=== PATIENT | male | born 1960 | race Caucasian/White ===

== ENCOUNTER → 2020-05-11 | Outpatient (CLI) | payer OTHER ==
[2020-05-11 19:56] LABS: BASOPHILS ABSOLUTE AUTO 0.03 K/mm3 (0.00-0.23); BASOPHILS PERCENT AUTO 0 % (0-2); EOSINOPHILS ABSOLUTE AUTO 0.08 K/mm3 (0.00-0.68); EOSINOPHILS PERCENT AUTO 1 % (0-6); Hematocrit 52.9 % (37.0-53.0); Hemoglobin 16.7 g/dL (13.5-17.5); IMMATURE GRAN ABSOLUTE AUTO 0.01 K/mm3 (0.00-0.10); IMMATURE GRAN PERCENT AUTO 0 % (0-1); LYMPHOCYTES ABSOLUTE AUTO 4.57 K/mm3 (0.84-5.20); LYMPHOCYTES PERCENT AUTO 54 % (21-46); MONOCYTES ABSOLUTE AUTO 0.61 K/mm3 (0.16-1.47); MONOCYTES PERCENT AUTO 7 % (4-13); Mean Corpuscular HGB 31.1 pg (26.0-34.0); Mean Corpuscular HGB Conc 31.6 g/dL (31.5-36.5); Mean Corpuscular Volume 99 fL (80-100); Mean Platelet Volume 11.8 fL (9.1-12.4); NEUTROPHILS ABSOLUTE AUTO 3.21 K/mm3 (1.96-9.15); NEUTROPHILS PERCENT AUTO 38 % (41-73); Platelet Count 172 K/mm3 (150-400); RDW Coefficient Variation 12.9 % (11.7-14.2); RDW Standard Deviation 46.9 fL (35.1-46.3); Red Blood Cell Count 5.37 M/mm3 (4.30-5.90); White Blood Cell Count 8.51 K/mm3 (4.00-11.30)
[2020-05-11 20:35] LABS: Alanine Aminotransfer (ALT/SGP 22 U/L (12-78); Albumin, Blood 3.3 g/dL (3.4-5.0); Albumin/Globulin Ratio 0.8 (0.8-1.8); Alk Phos 100 U/L (50-136); Anion Gap 6 mmol/L (6-16); Aspartate Aminotrans (AST/SGOT 25 U/L (12-37); Bilirubin, Total 0.5 mg/dL (0.1-1.0); Blood Urea Nitrogen 28 mg/dL (8-24); Bun/Creatinine Ratio 32.3 (12.0-20.0); CO2, Blood 28 mmol/L (21-32); Calcium, Blood 8.7 mg/dL (8.5-10.1); Chloride, Blood 109 mmol/L (98-108); Creatinine, Blood 0.87 mg/dL (0.60-1.20); Glomerular Filtration Rate >60 (60-); Glucose, Blood 82 mg/dL (70-99); Potassium, Blood 4.5 mmol/L (3.5-5.5); Sodium, Blood 143 mmol/L (136-145); Total Protein, Blood 7.3 g/dL (6.4-8.2)
[2020-05-11 20:43] LABS: Very Low Density Lipoprot Chol 16 mg/dL (6-32)
[2020-05-11 20:47] LABS: CHOL/HDL RATIO 3.9; Cholesterol 190 mg/dL (50-200); HDL Cholesterol 49 mg/dL (>39); LDL/HDL RATIO 2.5; Low Density Lipoprotein Chol 125 mg/dL (0-110); Prostate Specific Antigen 0.594 ng/mL (0.000-4.000); Triglycerides 81 mg/dL (30-160)
== END | disposition home or self-care (01) ==
LOC: LAB SHORT 18:40 → LAB 18:40
PROVIDERS: Nurse Practitioner Family
DX: Z12.5 Encounter for screening for malignant neoplasm of prostate (principal); E02 Subclinical iodine-deficiency hypothyroidism; E66.3 Overweight; Z79.899 Other long term (current) drug therapy
CPT/HCPCS: 80053; 80061; 83036; 84443; 85025; G0103

== ENCOUNTER → 2023-09-03 | Outpatient (CLI) | payer OTHER ==
[~2023-09-03] MED LIST: ATORVASTATIN CA20 MG PO; DEPAKOTE ER500 M2 PO; DIAZEPAM10 MG PO; DOCU100 PO; LEVOTHYROXINE112 MC6 PO; Vimpat200 MG PO
== END ==
LOC: LAB SHORT 07:53 → LAB EV 07:53
DX: L57.0 Actinic keratosis (principal); L72.8 Other follicular cysts of the skin and subcutaneous tissue; L57.8 Other skin changes due to chronic exposure to nonionizing radiation
CPT/HCPCS: 88305

== ENCOUNTER 2024-08-08 11:12 | Emergency (ER) | payer OTHER ==
[~2024-08-08] VITALS: Ht 170.2 cm; Wt 68.0 kg
[2024-08-08] MEDS ORDERED: Ketorolac Tromethamine 30mg Vial IV ONE (11:40)
[2024-08-08] MEDS ORDERED: Acetaminophen 500 MG Tab PO ONE (12:10)
[2024-08-08 13:30] VITALS: BP 110/57
== END 2024-08-08 13:58 | disposition home or self-care (01) ==
LOC: ER 11:12
DX: S00.81XA Abrasion of other part of head, initial encounter (principal); E03.9 Hypothyroidism, unspecified; E78.5 Hyperlipidemia, unspecified; W18.30XA Fall on same level, unspecified, initial encounter; Z79.899 Other long term (current) drug therapy
CPT/HCPCS: 70450; 99284-25; A9270

== ENCOUNTER → 2024-10-13 | Outpatient (CLI) | payer OTHER ==
[2024-10-13 19:20] LABS: BASOPHILS ABSOLUTE AUTO 0.02 K/mm3 (0.00-0.23); BASOPHILS PERCENT AUTO 0 % (0-2); EOSINOPHILS ABSOLUTE AUTO 0.15 K/mm3 (0.00-0.68); EOSINOPHILS PERCENT AUTO 2 % (0-6); Hematocrit 45.1 % (37.0-53.0); IMMATURE GRAN ABSOLUTE AUTO 0.02 K/mm3 (0.00-0.10); IMMATURE GRAN PERCENT AUTO 0 % (0-1); LYMPHOCYTES ABSOLUTE AUTO 3.55 K/mm3 (0.84-5.20); LYMPHOCYTES PERCENT AUTO 52 % (21-46); MONOCYTES ABSOLUTE AUTO 0.48 K/mm3 (0.16-1.47); MONOCYTES PERCENT AUTO 7 % (4-13); Mean Corpuscular HGB 31.9 pg (26.0-34.0); Mean Corpuscular HGB Conc 33.3 g/dL (31.5-36.5); Mean Corpuscular Volume 96 fL (80-100); Mean Platelet Volume 12.1 fL (9.1-12.4); NEUTROPHILS ABSOLUTE AUTO 2.65 K/mm3 (1.96-9.15); NEUTROPHILS PERCENT AUTO 39 % (41-73); Platelet Count 139 K/mm3 (150-400); RDW Coefficient Variation 14.2 % (11.7-14.2); RDW Standard Deviation 49.8 fL (35.1-46.3); White Blood Cell Count 6.87 K/mm3 (4.00-11.30)
[2024-10-13 19:46] LABS: Alanine Aminotransfer (ALT/SGP 22 U/L (12-78); Albumin, Blood 2.9 g/dL (3.4-5.0); Albumin/Globulin Ratio 0.8 (0.8-1.8); Alk Phos 46 U/L (50-136); Anion Gap 7 mmol/L (3-11); Aspartate Aminotrans (AST/SGOT 26 U/L (12-37); Bilirubin, Total 0.3 mg/dL (0.1-1.0); Blood Urea Nitrogen 38 mg/dL (8-24); Bun/Creatinine Ratio 52.7 (12.0-20.0); CO2, Blood 32 mmol/L (21-32); Calcium, Blood 8.5 mg/dL (8.5-10.1); Chloride, Blood 107 mmol/L (98-108); Cholesterol 180 mg/dL (50-200); Creatinine, Blood 0.72 mg/dL (0.60-1.20); Globulin, Blood 3.8 g/dL (2.2-4.0); Glomerular Filtration Rate 103 (60-); Glucose, Blood 151 mg/dL (70-99); HDL Cholesterol 61 mg/dL (>39); LDL/HDL RATIO 1.4; Low Density Lipoprotein Chol 88 mg/dL (0-110); Potassium, Blood 4.5 mmol/L (3.5-5.5); Sodium, Blood 141 mmol/L (136-145); Total Protein, Blood 6.7 g/dL (6.4-8.2); Triglycerides 155 mg/dL (30-160); Very Low Density Lipoprot Chol 31 mg/dL (6-32)
[2024-10-13 19:49] LABS: Valproic Acid 97.5 ug/mL (50.0-100.0)
[2024-10-16 12:24] LABS: HIV 1,2 COMBO ANTIGEN/ANTIBODY Negative (Negative)
== END ==
LOC: LAB SHORT 18:41 → LAB 18:41
PROVIDERS: Family Medicine
DX: Z12.5 Encounter for screening for malignant neoplasm of prostate (principal); Z11.4 Encounter for screening for human immunodeficiency virus [HIV]; E03.4 Atrophy of thyroid (acquired); E78.2 Mixed hyperlipidemia; G40.219 Localization-related (focal) (partial) symptomatic epilepsy and epileptic syndromes with complex partial seizures, intractable, without status epilepticus
CPT/HCPCS: 80053; 80061; 80164; 84443; 85025; 87389; G0103

== ENCOUNTER 2025-01-18 08:50 | Inpatient (IN) | payer OTHER ==
[2025-01-18] VITALS (27 sets, daily range): BP systolic 78–134; BP diastolic 42–87
[~2025-01-18] VITALS: Ht 175.3 cm; Wt 81.9 kg
[2025-01-18] MEDS ORDERED: LEVOTHYROXINE112 M18 PO (09:08)
[2025-01-18] MEDS ORDERED: DIAZ10 PO (09:09)
[2025-01-18] MEDS ORDERED: DEPAKOTE ER500 M2 PO (09:09)
[2025-01-18] MEDS ORDERED: LACOSAMIDE200 M1 PO (09:09)
[2025-01-18 09:52] LABS: Hematocrit 45.6 % (37.0-53.0); Hemoglobin 15.8 g/dL (13.5-17.5); Mean Corpuscular HGB 32.7 pg (26.0-34.0); Mean Corpuscular HGB Conc 34.6 g/dL (31.5-36.5); Mean Corpuscular Volume 94 fL (80-100); Mean Platelet Volume 12.2 fL (9.1-12.4); Platelet Count 95 K/mm3 (150-400); RDW Coefficient Variation 13.4 % (11.7-14.2); RDW Standard Deviation 47.2 fL (35.1-46.3); Red Blood Cell Count 4.83 M/mm3 (4.30-5.90); White Blood Cell Count 3.67 K/mm3 (4.00-11.30)
[2025-01-18 10:12] LABS: Albumin, Blood 2.9 g/dL (3.4-5.0); Albumin/Globulin Ratio 0.7 (0.8-1.8); Bilirubin, Total 0.6 mg/dL (0.1-1.0); Bun/Creatinine Ratio 34.2 (12.0-20.0); Calcium, Blood 9.2 mg/dL (8.5-10.1); Creatinine, Blood 1.14 mg/dL (0.60-1.20); Globulin, Blood 3.9 g/dL (2.2-4.0); Potassium, Blood 3.5 mmol/L (3.5-5.5); Total Protein, Blood 6.8 g/dL (6.4-8.2)
[2025-01-18 10:26] LABS: BAND PERCENT MAN 40 % (0-8); BASOPHILS PERCENT MAN 0 % (0-2); EOSINOPHILS PERCENT MAN 0 % (0-6); LYMPHOCYTES ABSOLUTE MAN 0.91 K/mm3 (0.84-5.20); LYMPHOCYTES PERCENT MAN 25 % (21-46); METAMYELOCYTE ABSOLUTE MAN 0.14 K/mm3 (0.00-0.00); METAMYELOCYTE PERCENT MAN 4 % (0-0); MONOCYTES ABSOLUTE MAN 0.18 K/mm3 (0.16-1.47); MONOCYTES PERCENT MAN 5 % (4-13); NEUTROPHILS ABSOLUTE MAN 2.42 K/mm3 (1.96-9.15); SEG NEUTROPHILS PERCENT MAN 26 % (41-73); TOTAL CELLS COUNTED 100
[2025-01-18 10:28] LABS: CORONAVIRUS COVID-19 AG Negative (NEGATIVE); INFLUENZA A AG Negative (NEGATIVE); INFLUENZA B AG Negative (NEGATIVE)
[2025-01-18] MEDS ORDERED: Lactated Ringer's 1,000 ML IV ONE (11:15)
[2025-01-18] MEDS ORDERED: Ketorolac Tromethamine 15mg Vial IV ONE (12:20)
[2025-01-18 12:26] LABS: Source, Urine Clean Catch
[2025-01-18 12:35] LABS: Appearance, Urine Clear (Clear); Bilirubin, Urine Neg (Neg); Blood, Urine 5+ (Neg); Color, Urine Yellow (P-Yellow); Glucose Qualitative, Urine Neg (Neg); Ketones, Urine Neg (Neg); Leukocyte Esterase, Urine 1+ (Neg); Nitrite, Urine Pos (Neg); Protein, Urine 3+ (Neg); Urobilinogen, Urine NORM (Normal)
[2025-01-18 12:46] LABS: Bacteria Many /hpf; Squamous Epithelial Cells Few /hpf (Few)
[2025-01-18] MEDS ORDERED: NS 1,000 ML IV SCH ×2 (13:20→14:20)
[2025-01-18] MEDS ORDERED: CefTRIAXone Sodium 1,000 MG in NS 100 ML IV ONE (13:20)
[2025-01-18] MEDS ORDERED: Piperacillin/Tazobactam Sod 3.375 GM in NS 100 ML IV ONE (13:25)
[2025-01-18] MEDS ORDERED: FLU VACC TS2024-25(6MOS UP)/PF 45 MCG/0.5 ML SYRINGE IM SCH (14:35)
[2025-01-18] MEDS ORDERED: Lactated Ringer's 1,000 ML IV SCH (14:35)
--- NOTE | 2025-01-18 17:37 | NUR ---
[facility] of care: Received patient from ED. He is awake & oriented to place & self, otherwise confused. Follows commands & very pleasant. Speech garbled & delayed -- very challenging to understand. IN NSR in the 70s with MAPs above 65 on 12 mcgs/min of norepi. Oxygen saturations not maintaining upon arrival to the unit so placed on 15L NRB with O2 sat currently 92-93%. He has a very congested but unproductive cough with coarse lung sounds. Stable RR. Male purewick in place draining clear, yellow urine. 400cc out in the ED per RN. He has a pre-existing abrasion to the posterior R shoulder & some redness to his L buttock but no open wounds. PIV x2 & R IJ CVC. LR infusing at 150cc/hr. Informed Dr. Paul of his oxygen requirements & clarified IVF order. No family present but patient updated on plan of care. Keep NPO per Dr. Paul until stable for bs swallow eval & then we may advance to clears if he tolerates. Will continue to monitor.
[2025-01-18] MEDS ORDERED: Diazepam 5 MG / ML 2ML SYR IV PRN (17:50)
[2025-01-18] MEDS ORDERED: NS 250 ML IV PRN (17:50)
[2025-01-18] MEDS ORDERED: Acetaminophen 650 MG Supp PR PRN (17:55)
[2025-01-18] MEDS ORDERED: Azithromycin 500 MG in NS 250 ML IV SCH (18:05)
[2025-01-18] MEDS ORDERED: Potassium Chloride 40 MEQ in NS 250 ML IV ONE (18:05)
[2025-01-18] MEDS ORDERED: Piperacillin/Tazobactam Sod 4.5 GM in NS 100 ML IV SCH (19:00)
[2025-01-18] MEDS ORDERED: Lacosamide 200 MG/20 ML 20ML Vial IV SCH (21:00)
[2025-01-18] MEDS ORDERED: Lactobacil 2-S.Thermo-Bifido 1 1 Cap PO SCH (21:00)
[2025-01-18] MEDS ORDERED: Docusate Sodium 100 MG Cap PO SCH (21:00)
[2025-01-19] VITALS (87 sets, daily range): BP systolic 80–132; BP diastolic 42–106
[2025-01-19 03:58] LABS: Hematocrit 41.4 % (37.0-53.0); Hemoglobin 14.1 g/dL (13.5-17.5); Mean Corpuscular HGB 32.5 pg (26.0-34.0); Mean Corpuscular HGB Conc 34.1 g/dL (31.5-36.5); Mean Corpuscular Volume 95 fL (80-100); Mean Platelet Volume 12.4 fL (9.1-12.4); Platelet Count 74 K/mm3 (150-400); RDW Coefficient Variation 13.8 % (11.7-14.2); Red Blood Cell Count 4.34 M/mm3 (4.30-5.90); White Blood Cell Count 7.76 K/mm3 (4.00-11.30)
[2025-01-19 04:18] LABS: Albumin, Blood 2.1 g/dL (3.4-5.0); Albumin/Globulin Ratio 0.6 (0.8-1.8); Bilirubin, Total 0.5 mg/dL (0.1-1.0); Bun/Creatinine Ratio 29.6 (12.0-20.0); Calcium, Blood 8.3 mg/dL (8.5-10.1); Creatinine, Blood 0.74 mg/dL (0.60-1.20); Globulin, Blood 3.4 g/dL (2.2-4.0); Potassium, Blood 3.9 mmol/L (3.5-5.5); Total Protein, Blood 5.5 g/dL (6.4-8.2)
[2025-01-19 05:16] LABS: BAND PERCENT MAN 21 % (0-8); BASOPHILS PERCENT MAN 0 % (0-2); EOSINOPHILS PERCENT MAN 0 % (0-6); LYMPHOCYTES ABSOLUTE MAN 2.94 K/mm3 (0.84-5.20); LYMPHOCYTES PERCENT MAN 38 % (21-46); METAMYELOCYTE ABSOLUTE MAN 0.38 K/mm3 (0.00-0.00); METAMYELOCYTE PERCENT MAN 5 % (0-0); MONOCYTES ABSOLUTE MAN 0.69 K/mm3 (0.16-1.47); MONOCYTES PERCENT MAN 9 % (4-13); MYELOCYTE ABSOLUTE MAN 0.38 K/mm3 (0.00-0.00); MYELOCYTE PERCENT MAN 5 % (0-0); NEUTROPHILS ABSOLUTE MAN 3.33 K/mm3 (1.96-9.15); SEG NEUTROPHILS PERCENT MAN 22 % (41-73); TOTAL CELLS COUNTED 100
--- NOTE | 2025-01-19 05:34 | NUR ---
SHIFT SUMMARY PT A/OX4, RESPONDS TO QUESTIONS APPROPRIATLY AND INITIATES CONVERSATION WITH STAFF. MAKES NEEDS KNOWN AND USES CALL LIGHT. 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 MAPS > 65 ON LEVO 9 MCG/MIN. PT WAS ON 15L NRB AT START OF SHIFT, WAS ABLE TO TITRATE HIM DOWN TO 2L W/ MASK, SATS > 95%. CONDOM CATH IN PLACE W/ GOOD UOP. NO BM THIS SHIFT, NPO R/T PENDING BEDSIDE SWALLOW EVAL. WAS NOT DONE THIS SHIFT. RASH IN GROIN AREA, BARRIER CREAM APPLIED. CHG BATH DONE. NO ACUTE EVENTS.
[2025-01-19] MEDS ORDERED: Levothyroxine Sodium 0.112 MG Tab PO SCH (06:00)
--- NOTE | 2025-01-19 08:01 | NUR ---
0730 ASSUMED CARE OF PT PT IS ALERT AND ORIENTED TO PLACE, SITUATION, NOT DATE. HE HAS ON A OPEN FACE MASK AT 4L OXYGENATION AT 98%. PULSE IS SINUS TO SINUS TEZ RATE 50-60'S. BS STABLE SYST BP 122/53 MAP 71. PT IS STILL TACHYPNIC RATE 30'S. PT HAS ON A CONDOM CATH FOR URINATION COLLECTION CURRENTLY. WILL DO A SWALLOW EVAL ON PT. HE DOES HAVE A VERY COURSE COUGH. IV'S ARE LEVOPHED AT 9MCG GOING INTO RIGHT IJ CENTRAL LINE AND IV FLUIDS. PIV TO RIGHT AC PATENT.
[2025-01-19] MEDS ORDERED: Enoxaparin 40 MG/0.4 ML SYR SC SCH (09:00)
[2025-01-19] MEDS ORDERED: Dextrose 5% 1,000 ML IV SCH ×2 (09:35→18:35)
[2025-01-19] MEDS ORDERED: Diazepam 5 MG Tab PO SCH (09:45)
[2025-01-19] MEDS ORDERED: Vancomycin HCL 1,500 MG in NS 250 ML IV ONE (14:15)
--- NOTE | 2025-01-19 15:47 | NUR ---
MET WITH HARRY HIMSELF, THEN SPOKE WITH ROBERTO SANTIAGO BY PHONE. PT STATES HIS DESIRE TO EAT, AND PAMELA DESCRIBES FOOD "HARRY'S LIFE." PLAN FOR OPTIMIZATION OF PATIENT PER DR. GIRON, THEN HOME WITH HOSPICE ON FRI OR MON, ONCE ANTIBIOTICS AND OTHER TREATMENTS ARE COMPLETE. BOTH PATIENT AND PAMELA ARE AGREEABLE TO THIS PLAN.
--- NOTE | 2025-01-19 18:46 | NUR ---
END OF SHIFT NOTE PT HAD A BARIUM SWALLOW EVAL TODAY. IT WAS DECIDED BY PALLIATIVE CARE AND FAMILY THAT PT WOULD BE DNR AND BE ON A PUREE DIET. HE IS ON THE USE OF ANOTHER CONDOM CATH TODAY, THE ONE HE HAD TODAY PULLED OFF. HE HAD HIS BEDBATH AND WITH CHG WIPES. HIS CENTRAL LINE DRESSING WAS CHANGED TODAY AT RIGHT IJ. HE WAS ABLE TO SWALLOW HIS PILLS AFTER THEY WERE CRUSHED AND ONLY PUT IN APPLESAUCE PER SPEECH THERAPY. FAMILY " PAMELA" CAME IN TODAY TO SEE PT AND HIS PROGRESS. PTS LEVOPHED HAS BEEN TITRATED DOWN VERY SLOWLY D/T HIS RESPONSE AND IS CURRENTLY AT 5MCG/MIN. WILL GIVE REPORT TO NEXT SHIFT TO RESUME CARE.
[2025-01-20] VITALS (69 sets, daily range): BP systolic 75–131; BP diastolic 24–83
[2025-01-20] MEDS ORDERED: Vancomycin HCL 1,000 MG in NS 250 ML IV SCH
[2025-01-20 04:17] LABS: Hematocrit 35.7 % (37.0-53.0); Hemoglobin 12.1 g/dL (13.5-17.5); Mean Corpuscular HGB 32.2 pg (26.0-34.0); Mean Corpuscular HGB Conc 33.9 g/dL (31.5-36.5); Mean Corpuscular Volume 95 fL (80-100); Mean Platelet Volume 12.2 fL (9.1-12.4); Platelet Count 59 K/mm3 (150-400); RDW Coefficient Variation 13.7 % (11.7-14.2); RDW Standard Deviation 48.4 fL (35.1-46.3); Red Blood Cell Count 3.76 M/mm3 (4.30-5.90); White Blood Cell Count 7.78 K/mm3 (4.00-11.30)
[2025-01-20 04:38] LABS: Albumin, Blood 1.7 g/dL (3.4-5.0); Albumin/Globulin Ratio 0.5 (0.8-1.8); BAND PERCENT MAN 16 % (0-8); BASOPHILS PERCENT MAN 0 % (0-2); Bilirubin, Total 0.5 mg/dL (0.1-1.0); Bun/Creatinine Ratio 25.7 (12.0-20.0); Calcium, Blood 7.5 mg/dL (8.5-10.1); Creatinine, Blood 0.74 mg/dL (0.60-1.20); EOSINOPHILS ABSOLUTE MAN 0.07 K/mm3 (0.00-0.68); EOSINOPHILS PERCENT MAN 1 % (0-6); Globulin, Blood 3.1 g/dL (2.2-4.0); LYMPHOCYTES ABSOLUTE MAN 2.87 K/mm3 (0.84-5.20); LYMPHOCYTES PERCENT MAN 37 % (21-46); MONOCYTES ABSOLUTE MAN 0.62 K/mm3 (0.16-1.47); MONOCYTES PERCENT MAN 8 % (4-13); Potassium, Blood 3.2 mmol/L (3.5-5.5); SEG NEUTROPHILS PERCENT MAN 38 % (41-73); TOTAL CELLS COUNTED 100; Total Protein, Blood 4.8 g/dL (6.4-8.2)
[2025-01-20] MEDS ORDERED: Potassium Chloride 40 MEQ in NS 250 ML IV ONE (05:00)
--- NOTE | 2025-01-20 05:54 | NUR ---
SHIFT SUMMARY PT RESTING IN BED, SLEEPING BUT AROUSABLE. PT ORIENTED X4, ANSWERS QUESTIONS APPROPRIATELY, FOLLWOS DIRECTION WHEN PROMPTED AND IS ABLE TO MAKE HIS NEEDS KNOWN. PT SPEECH MUMBLED. HR 40-60'S SINUS, LEVOPHED INFUSING AT 5MCG/MIN TO MAINTAIN MAP >65, PT DENIES CP/PRESSURE. PT ON 6LPM VIA NC, OXYGEN SATURATION >95%. ABDOMEN SOFT, BOWEL TONES ACTIVE THROGUHOUT. CONDOM CATH IN PLACE DRAINING ALEKS COLORED URINE. PIV IN PLACE TO LEFT HAND AND RAC. CENTRAL LINE IN PLACE TO RIJ. BED IN LOWEST POSITION, CALL LIGHT WITHIN REACH, CARE CONTINUES.
[2025-01-20] MEDS ORDERED: Aspirin 81 MG Chew PO SCH (09:00)
[2025-01-20] MEDS ORDERED: Clopidogrel Bisulfate 75 MG Tab PO SCH (09:00)
[2025-01-20 15:31] LABS: Vancomycin, Trough 16.2 ug/mL (5.0-10.0)
[2025-01-20] MEDS ORDERED: Dose Adjust by Pharmacy XX STA (15:36)
[2025-01-20] MEDS ORDERED: Piperacillin/Tazobactam Sod 4.5 GM in NS 100 ML IV SCH (20:00)
--- NOTE | 2025-01-20 20:00 | NUR ---
[facility] OF CARE PT LYING IN BED ALERT AND ORIENTED IN NO APPARENT DISTRESS. LEVOPHED INFUSING AT 2. WILL TITRATE NEEDED. HR SINUS TEZ VS NORMAL RATE. NO CHEST PAIN /PRESSURE. NO SOB. SAT OF 97% ON 3L NC. NO AB PAIN. WILL CONTINUE TO MONITOR AND PROCEED WITH [facility] PLAN OF CARE.
[2025-01-21] VITALS (87 sets, daily range): BP systolic 55–147; BP diastolic 36–102
[2025-01-21] MEDS ORDERED: Acetaminophen 325 MG TABLET PO PRN (02:20)
[2025-01-21] MEDS ORDERED: Benzonatate 100 MG Cap PO PRN (03:35)
[2025-01-21 04:41] LABS: BASOPHILS ABSOLUTE AUTO 0.02 K/mm3 (0.00-0.23); BASOPHILS PERCENT AUTO 0 % (0-2); EOSINOPHILS ABSOLUTE AUTO 0.18 K/mm3 (0.00-0.68); EOSINOPHILS PERCENT AUTO 3 % (0-6); Hematocrit 35.1 % (37.0-53.0); Hemoglobin 12.1 g/dL (13.5-17.5); IMMATURE GRAN ABSOLUTE AUTO 0.02 K/mm3 (0.00-0.10); IMMATURE GRAN PERCENT AUTO 0 % (0-1); LYMPHOCYTES ABSOLUTE AUTO 2.07 K/mm3 (0.84-5.20); LYMPHOCYTES PERCENT AUTO 35 % (21-46); MONOCYTES ABSOLUTE AUTO 0.37 K/mm3 (0.16-1.47); MONOCYTES PERCENT AUTO 6 % (4-13); Mean Corpuscular HGB 33.1 pg (26.0-34.0); Mean Corpuscular HGB Conc 34.5 g/dL (31.5-36.5); Mean Corpuscular Volume 96 fL (80-100); Mean Platelet Volume 12.4 fL (9.1-12.4); NEUTROPHILS ABSOLUTE AUTO 3.22 K/mm3 (1.96-9.15); NEUTROPHILS PERCENT AUTO 55 % (41-73); Platelet Count 58 K/mm3 (150-400); RDW Standard Deviation 49.7 fL (35.1-46.3); Red Blood Cell Count 3.66 M/mm3 (4.30-5.90); White Blood Cell Count 5.88 K/mm3 (4.00-11.30)
[2025-01-21 05:07] LABS: Bun/Creatinine Ratio 25.1 (12.0-20.0); Calcium, Blood 8.1 mg/dL (8.5-10.1); Creatinine, Blood 0.8 mg/dL (0.60-1.20); Potassium, Blood 3.9 mmol/L (3.5-5.5)
[2025-01-21] MEDS ORDERED: Potassium Chl 20MEQ/Water100ML 100 ML IV ONE (06:25)
--- NOTE | 2025-01-21 07:18 | NUR ---
SHIFT SUMMARY PT LYING IN BED FOLLOWING CONDOM CATH CHANGE. PT SHOWS NO SIGN OF DISTRESS. SINUS TEZ WITH MAP OF 75 AND LEVO AT 1. O2 SAT >94% ON 2L NC. NO CHEST PAIN/PRESSURE. NO AB PAIN, N/V. PLAN IS HOME TO HOSPICE ON FRIDAY. REPORT GIVEN TO DAY RN. PT HAS CALL LIGHT.
--- NOTE | 2025-01-21 22:51 | NUR ---
ASSUMPTION OF CARE PT LYING IN BED ALERT AND ORIENTED IN NO APPARENT DISTRESS. LEVOPHED INFUSING AT 1. WILL TITRATE NEEDED. WILL CONSIDER TRANSITIONING TO MIDODRINE. HR SINUS TEZ VS NORMAL RATE. NO CHEST PAIN/PRESSURE. NO SOB. SAT OF 93% ON RA. NO AB PAIN. WILL CONTINUE TO MONITOR AND PROCEED WITH [facility] PLAN OF CARE.
[2025-01-22] VITALS (35 sets, daily range): BP systolic 92–149; BP diastolic 36–107
[2025-01-22] MEDS ORDERED: Midodrine 5 MG Tab PO ONE (02:25)
[2025-01-22] MEDS ORDERED: Melatonin 5 MG Tablet PO ONE (02:35)
[2025-01-22 04:28] LABS: Bun/Creatinine Ratio 23.3 (12.0-20.0); Calcium, Blood 8.2 mg/dL (8.5-10.1); Creatinine, Blood 0.82 mg/dL (0.60-1.20)
--- NOTE | 2025-01-22 05:57 | NUR ---
SHIFT SUMMARY PT LYING IN BED, AWAKE, ALERT AND ORIENTED, WITH SLOW SOFT SPEECH. PT SHOWS NO SIGN OF DISTRESS. NO EVIDENCE OF SEIZURE LIKE ACTIVITY DURING SHIFT. SINUS TEZ WITH MAP OF 87. FIRST DOSE OF MIDODRINE GIVEN AT 0300. LEVOPHED OFF AT 0345. LEVOPHED RESTARTED AT 0500 DUE TO LOW MAP BUT AFTER CHANGING THE LOCATION OF BP CUFF FROM LA TO LFA, THE MAPS INCREASED CONSIDERABLY AND LEVOPHED WAS AGAIN DISCONTINUED. O2 SAT >94% ON 2L NC. NO CHEST PAIN/PRESSURE. NO AB PAIN, N/V. PLAN IS HOME TO HOSPICE ON FRIDAY. REPORT GIVEN TO DAY RN. PT HAS CALL LIGHT.
[2025-01-22 08:22] LABS: Vancomycin, Trough 26.5 ug/mL (5.0-10.0)
[2025-01-22] MEDS ORDERED: Midodrine 5 MG Tab PO SCH (09:00)
--- NOTE | 2025-01-22 19:41 | NUR ---
ASSUMPTION OF CARE PT LYING IN BED ALERT AND ORIENTED IN NO APPARENT DISTRESS. HR SINUS TEZ IN THE 50'S WITH MAP OF 70. MIDODRINE 5MG TID. NO CHEST PAIN/PRESSURE. NO SOB. SAT OF 93% ON 2L NC. NO AB PAIN. WILL CONTINUE TO MONITOR AND PROCEED WITH [facility] PLAN OF CARE.
[2025-01-22 20:41] LABS: Vancomycin, Random 13.5 ug/mL
[2025-01-22] MEDS ORDERED: Vancomycin HCL 1,000 MG in NS 250 ML IV SCH (21:00)
[2025-01-22] MEDS ORDERED: Melatonin 5 MG Tablet PO SCH (21:00)
[2025-01-23] VITALS (11 sets, daily range): BP systolic 91–124; BP diastolic 49–88
[2025-01-23 04:24] LABS: BASOPHILS ABSOLUTE AUTO 0.02 K/mm3 (0.00-0.23); BASOPHILS PERCENT AUTO 1 % (0-2); EOSINOPHILS ABSOLUTE AUTO 0.31 K/mm3 (0.00-0.68); EOSINOPHILS PERCENT AUTO 7 % (0-6); IMMATURE GRAN ABSOLUTE AUTO 0.06 K/mm3 (0.00-0.10); IMMATURE GRAN PERCENT AUTO 1 % (0-1); LYMPHOCYTES ABSOLUTE AUTO 2.25 K/mm3 (0.84-5.20); LYMPHOCYTES PERCENT AUTO 52 % (21-46); MONOCYTES ABSOLUTE AUTO 0.43 K/mm3 (0.16-1.47); MONOCYTES PERCENT AUTO 10 % (4-13); Mean Corpuscular HGB 32.3 pg (26.0-34.0); Mean Corpuscular HGB Conc 33.3 g/dL (31.5-36.5); Mean Corpuscular Volume 97 fL (80-100); Mean Platelet Volume 12.1 fL (9.1-12.4); NEUTROPHILS ABSOLUTE AUTO 1.28 K/mm3 (1.96-9.15); NEUTROPHILS PERCENT AUTO 29 % (41-73); Platelet Count 85 K/mm3 (150-400); RDW Standard Deviation 49.6 fL (35.1-46.3); Red Blood Cell Count 3.71 M/mm3 (4.30-5.90); White Blood Cell Count 4.35 K/mm3 (4.00-11.30)
[2025-01-23 04:33] LABS: Bun/Creatinine Ratio 26.3 (12.0-20.0); Calcium, Blood 8.1 mg/dL (8.5-10.1); Creatinine, Blood 0.8 mg/dL (0.60-1.20); Potassium, Blood 4.2 mmol/L (3.5-5.5)
--- NOTE | 2025-01-23 07:34 | NUR ---
SHIFT SUMMARY PT LYING IN BED, AWAKE, ALERT AND ORIENTED, WITH SLOW SOFT SPEECH. PT SHOWS NO SIGN OF DISTRESS. NO EVIDENCE OF SEIZURE LIKE ACTIVITY DURING SHIFT. SINUS TEZ WITH MAP OF 67. NO MAPS BELOW 65 DURING SHIFT WITH AVERAGE AROUND 74. O2 SAT >94% ON 2L NC. NO CHEST PAIN/PRESSURE. NO AB PAIN, N/V. PLAN IS HOME TO HOSPICE ON FRIDAY. REPORT GIVEN TO DAY RN. PT HAS CALL LIGHT.
[2025-01-23] MEDS ORDERED: Lacosamide 50 MG Tablet PO SCH (21:00)
[2025-01-23] MEDS ORDERED: Amoxicillin/Clavulanate K 875 MG Tab PO SCH (21:00)
--- NOTE | 2025-01-24 06:45 | NUR ---
SHIFT SUMMARY: THIS PT SLEPT MOST OF THE NIGHT AND NO ACUTE EVENTS OCCURRED. PT IS CURRENTLY RESTING IN BED AND PLEASENT.
--- NOTE | 2025-01-24 09:00 | NUR ---
[facility] of care: Orders for med floor. Alert & pleasant, resting in bed with no complaints. Condom cath & PIV in place. Plans to discharge home with hospice today. Will continue to monitor.
[2025-01-24 09:10] VITALS: BP 88/64
[2025-01-24] MEDS ORDERED: ACET325 PO (10:37)
[2025-01-24] MEDS ORDERED: AMOCLA875 PO (10:38)
[2025-01-24] MEDS ORDERED: DOCU100 PO (10:39)
[2025-01-24] MEDS ORDERED: BENZ100A PO (10:39)
[2025-01-24] MEDS ORDERED: MIDO5 PO (10:40)
[2025-01-24] MEDS ORDERED: MELATONIN5 M1 PO (10:40)
[2025-01-24] MEDS ORDERED: DIAZ10 PO (10:41)
[2025-01-24] MEDS ORDERED: VISBIOME 112.51 EACH PO (10:49)
--- NOTE | 2025-01-24 12:02 | NUR ---
Spiritual care visit conducted. Patient is sitting up in bed and alert. He tells me about his planned discharge home and that he is glad I came by before he left. He asks for prayer for personal resaons and for healing of his pneumonia. I gladly supply prayer and conversations centered around his Sabianism asia. He displayed evidence of greater peace from the interventions provided. I will continue to remain available to patient and family.
--- NOTE | 2025-01-24 13:35 | NUR ---
Dischaged home with caregiver, Jarrod. All discharge paperwork reviewed & all questions answered.
== END 2025-01-24 13:30 | disposition hospice, home (50) | DRG 871 ==
LOC: ER 08:50 → ERHOLD 14:31 → ICUE 14:31
PROVIDERS: Family Medicine; Internal Medicine; Student in an Organized Health Care Education/Training Program; ADMIT Internal Medicine
PROC: 3E03329 Introduction of Other Anti-infective into Peripheral Vein, Percutaneous Approach (ICD-10-PCS; principal; 2025-01-18)
PROC: 02H633Z Insertion of Infusion Device into Right Atrium, Percutaneous Approach (ICD-10-PCS; 2025-01-18)
PROC: B548ZZA Ultrasonography of Superior Vena Cava, Guidance (ICD-10-PCS; 2025-01-18)
PROC: 3E033XZ Introduction of Vasopressor into Peripheral Vein, Percutaneous Approach (ICD-10-PCS; 2025-01-18)
PROC: 0T9B70Z Drainage of Bladder with Drainage Device, Via Natural or Artificial Opening (ICD-10-PCS; 2025-01-18)
DX: A41.9 Sepsis, unspecified organism (principal); G92.8 Other toxic encephalopathy; J18.9 Pneumonia, unspecified organism; J96.01 Acute respiratory failure with hypoxia; J69.0 Pneumonitis due to inhalation of food and vomit; N39.0 Urinary tract infection, site not specified; E87.20 Acidosis, unspecified; M62.82 Rhabdomyolysis; Z66 Do not resuscitate; G40.909 Epilepsy, unspecified, not intractable, without status epilepticus; Z51.5 Encounter for palliative care; R65.20 Severe sepsis without septic shock; E78.5 Hyperlipidemia, unspecified; M25.511 Pain in right shoulder; E03.9 Hypothyroidism, unspecified; S40.211A Abrasion of right shoulder, initial encounter; Z86.16 Personal history of COVID-19; Z79.899 Other long term (current) drug therapy; Z79.890 Hormone replacement therapy; Z98.890 Other specified postprocedural states; W18.11XA Fall from or off toilet without subsequent striking against object, initial encounter; Y92.009 Unspecified place in unspecified non-institutional (private) residence as the place of occurrence of the external cause
CPT/HCPCS: 36415; 36556; 51701; 70450; 71045; 72070; 72100; 72125; 73030; 74177; 74230; 80048; 80053; 80202; 81001; 82550; 82947; 83605; 84145; 84146; 84295; 84484; 85025; 87040; 87077; 87086; 87186; 87428-QW; 92610; 92611; 93005; 93010; 94760; 94762; 96361-59; 96374-59; 99285-25; A9270; C1751; C9254; J0456; J1650; J1885; J2543; J3370; J3480; J7030; J7050; J7060; J7070; J7120; Q9967

== ENCOUNTER → 2025-10-28 | Outpatient (CLI) | payer OTHER ==
[~2025-10-28] MED LIST changes: +ACET325 PO; +AMOCLA875 PO; +BENZ100A PO; +DIAZ10 PO; +LACOSAMIDE200 M1 PO; +LEVOTHYROXINE112 M18 PO; +MELATONIN5 M1 PO; +MIDO5 PO; +VISBIOME 112.51 EACH PO
[2025-10-28 18:21] LABS: BASOPHILS ABSOLUTE AUTO 0.02 K/mm3 (0.00-0.23); BASOPHILS PERCENT AUTO 0 % (0-2); EOSINOPHILS ABSOLUTE AUTO 0.06 K/mm3 (0.00-0.68); EOSINOPHILS PERCENT AUTO 1 % (0-6); Hematocrit 46.6 % (37.0-53.0); Hemoglobin 15.7 g/dL (13.5-17.5); IMMATURE GRAN ABSOLUTE AUTO 0.01 K/mm3 (0.00-0.10); IMMATURE GRAN PERCENT AUTO 0 % (0-1); LYMPHOCYTES ABSOLUTE AUTO 3.67 K/mm3 (0.84-5.20); LYMPHOCYTES PERCENT AUTO 55 % (21-46); MONOCYTES ABSOLUTE AUTO 0.81 K/mm3 (0.16-1.47); MONOCYTES PERCENT AUTO 12 % (4-13); Mean Corpuscular HGB Conc 33.7 g/dL (31.5-36.5); Mean Corpuscular Volume 97 fL (80-100); NEUTROPHILS ABSOLUTE AUTO 2.11 K/mm3 (1.96-9.15); NEUTROPHILS PERCENT AUTO 32 % (41-73); NRBC ABSOLUTE 0.00 K/mm3 (0.00-0.02); NRBC Auto 0.0 /100 WBC (0.0-0.2); Platelet Count 135 K/mm3 (150-400); RDW Coefficient Variation 12.8 % (11.7-14.2); RDW Standard Deviation 45.5 fL (35.1-46.3)
[2025-10-28 19:48] LABS: Alanine Aminotransfer (ALT/SGP 18 U/L (12-78); Albumin, Blood 3.2 g/dL (3.4-5.0); Albumin/Globulin Ratio 0.8 (0.8-1.8); Anion Gap 10 mmol/L (3-11); Aspartate Aminotrans (AST/SGOT 24 U/L (12-37); Bilirubin, Total 0.6 mg/dL (0.1-1.0); Blood Urea Nitrogen 31 mg/dL (8-24); CHOL/HDL RATIO 3.1; CO2, Blood 28 mmol/L (21-32); Calcium, Blood 8.8 mg/dL (8.5-10.1); Chloride, Blood 104 mmol/L (98-108); Cholesterol 175 mg/dL (50-200); Creatinine, Blood 0.88 mg/dL (0.60-1.20); Globulin, Blood 3.8 g/dL (2.2-4.0); Glucose, Blood 88 mg/dL (70-99); HDL Cholesterol 57 mg/dL (>39); LDL/HDL RATIO 1.8; Low Density Lipoprotein Chol 101 mg/dL (0-110); Potassium, Blood 4.2 mmol/L (3.5-5.5); Prostate Specific Antigen 2.440 ng/mL (0.000-4.000); Sodium, Blood 138 mmol/L (136-145); Thyroid Stimulating Hormone 0.818 uIU/mL (0.360-4.800); Total Protein, Blood 7.0 g/dL (6.4-8.2); Triglycerides 86 mg/dL (30-160); Very Low Density Lipoprot Chol 17 mg/dL (6-32)
== END ==
LOC: LAB 10:10 → LAB SHORT 10:10
PROVIDERS: Family Medicine
DX: E55.9 Vitamin D deficiency, unspecified (principal); E03.4 Atrophy of thyroid (acquired); E78.2 Mixed hyperlipidemia; G24.9 Dystonia, unspecified; G40.219 Localization-related (focal) (partial) symptomatic epilepsy and epileptic syndromes with complex partial seizures, intractable, without status epilepticus; Z12.5 Encounter for screening for malignant neoplasm of prostate
CPT/HCPCS: 80053; 80061; 80164; 82306; 84443; 85025; G0103